=== PATIENT | male | born 1965 ===

== ENCOUNTER 2020-12-06 06:00 | Day surgery (SDC) | payer OTHER ==
[~2020-12-06 06:00] MED LIST: AMBIEN10 MG PO; VYTORIN 10-401 EACH PO
[2020-12-06] MEDS ORDERED: RECTICARE30 GM TOP (08:59)
[2020-12-06] MEDS ORDERED: PERCOCET 5-3251 EACH PO (08:59)
[2020-12-06] MEDS ORDERED: DERMOPLAST PAIN78 GM TOP (09:00)
== END 2020-12-06 16:45 | disposition home or self-care (01) ==
LOC: CIR.AMB 06:00
PROVIDERS: ATTEND Surgery
DX: K64.8 Other hemorrhoids (principal); K64.4 Residual hemorrhoidal skin tags; Z20.822 Contact with and (suspected) exposure to COVID-19